=== PATIENT | male | born 1960 | race Caucasian/White ===

== ENCOUNTER 2021-02-16 06:08 | Day surgery (SDC) | payer OTHER ==
[~2021-02-16 06:08] MED LIST: LIDOCAINE HCL 2% (50ML VIAL) INF ONE
[2021-02-16] MEDS ORDERED: LIDOCAINE HCL 2% (20ML MULTI-DOSE VIAL) ONE (07:03)
[2021-02-16] MEDS ORDERED: MIDAZOLAM HCL 2 MG/2 ML SINGLE DOSE VIAL ONE ×2 (07:13→07:49)
[2021-02-16] MEDS ORDERED: PROPOFOL 20 ML ONE ×2 (07:13→07:51)
[2021-02-16] MEDS ORDERED: ONDANSETRON 4 MG/2 ML VIAL ONE (07:39)
[2021-02-16] MEDS ORDERED: DEXAMETHASONE SOD PHOSPHATE 4 MG/1 ML VIAL ONE (07:39)
[2021-02-16] MEDS ORDERED: LIDOCAINE HCL 2% (50ML VIAL) INF ONE (07:45)
[2021-02-16] MEDS ORDERED: KETOROLAC TROMETHAMINE 30 MG/1 ML VIAL ONE (08:06)
== END 2021-02-16 09:00 | disposition home or self-care (01) ==
LOC: FASU 06:08
PROVIDERS: ATTEND Orthopaedic Surgery Hand Surgery
PROC: 0XBK0ZZ Excision of Left Hand, Open Approach (ICD-10-PCS; principal; 2021-02-16 07:50)
DX: D36.7 Benign neoplasm of other specified sites (principal); R22.32 Localized swelling, mass and lump, left upper limb
CPT/HCPCS: 88305-TC; 88313-TC